=== PATIENT | female | born 1960 | race Caucasian/White ===

== ENCOUNTER 2021-09-14 14:10 | Outpatient (CLI) | payer MEDICARE | END 2021-09-14 23:59 | disposition home or self-care (01) | LOC: RAD 14:10 | PROVIDERS: ATTEND Otolaryngology | DX: R13.10 Dysphagia, unspecified (principal); E04.1 Nontoxic single thyroid nodule; R49.0 Dysphonia; Z72.0 Tobacco use | CPT/HCPCS: 74220; 74230 ==